=== PATIENT | female | born 1970 | race Caucasian/White ===

== ENCOUNTER 2022-07-10 08:40 | Outpatient (CLI) | payer BC ==
[2022-07-10 09:26] LABS: #Basophils 0.1 thou/uL (0.0-0.2); #Eosinphils 0.3 thou/uL (0.0-0.7); #Lymphocytes 3.3 thou/uL (1.20-3.40); #Monocytes 0.6 thou/uL (0.11-0.59); #Neutrophils 7.4 thou/uL (1.40-6.50); %Eosinophils 2.8 % (0.0-10.0); %Lymphocytes 28.2 % (21.0-51.0); Hemoglobin 13.9 g/dL (12.0-16.0); Mean Corpuscular HGB CONC 33.4 g/dL (32.0-36.0); Mean Corpuscular Hemoglobin 29.3 pg (27.0-31.0); Mean Corpuscular Volume 87.8 fl (78.0-98.0); Mean Platelet Volume 6.2 fL (7.4-10.4); Platelet Count 437 10x3/uL (130-400); Red Blood Cell (RBC) Count 4.72 mill/uL (4.20-5.40); White Blood Cell (WBC) Count 11.8 10x3/uL (4.8-10.8)
[2022-07-10 09:44] LABS: ALT (SGPT) 14 U/L (8-55); AST (SGOT) 12 U/L (5-34); Albumin 4.1 g/dL (3.5-5.0); Alkaline Phosphatase 79 U/L (40-110); Anion Gap 13 mmol/L (10-20); BUN (Urea Nitrogen) 11 mg/dL (9.8-20.1); Bilirubin, Total 0.3 mg/dL (0.2-1.2); Calc. Creatinine Clearance 0 mL/min (70-130); Calcium 9.3 mg/dL (7.8-10.44); Carbon Dioxide 27 mmol/L (22-29); Cardiac Risk 2.3 (Less than 4.5); Chloride 104 mmol/L (98-107); Cholesterol 146 mg/dl (< 200 Desired); Estimated GFR 86; Globulin 3.8 g/dL (2.4-3.5); Glucose 79 mg/dL (70-105); HDL Cholesterol 64 mg/dL (>60 Neg Risk); LDL Cholesterol, Calculated 71 mg/dL; Magnesium 2.1 mg/dL (1.6-2.6); Potassium 3.5 mmol/L (3.5-5.1); Protein, Total 7.9 g/dL (6.0-8.3); Sodium 140 mmol/L (136-145); Triglycerides 55 mg/dL (Less than 150)
[2022-07-10 16:19] LABS: Hemoglobin A1c 5.5 % (4.0-6.0)
[2022-07-10 16:22] LABS: Albumin (w/Testosterone Panel) 3.9 g/dL
[2022-07-10 16:23] LABS: Iron 62 ug/dL (50-170); Iron Binding Capacity, Total 281 mcg/dL (265-497)
[2022-07-10 16:32] LABS: Ferritin 27.84 ng/mL (10-291)
[2022-07-10 16:33] LABS: Free T4 (Free Thyroxine) 0.94 ng/dL (0.70-1.48)
[2022-07-10 16:34] LABS: Insulin 11.9 uU/mL (3.0-25.0); Vitamin D, 25 Hydroxy 9.9 ng/ml (> 30.0)
[2022-07-10 16:48] LABS: Testosterone, Total 22.4 ng/dL (12-36)
[2022-07-10 16:52] LABS: Sex Hormone Binding Globulin 34.9 nmol/L (26-188)
[2022-07-10 18:50] LABS: Follicle Stimulating Hormone 73.55 mIU/mL (See Ranges); Luteinizing Hormone 28.18 mIU/mL (See Ranges); Progesterone 0.3 ng/mL
[2022-07-13 15:49] LABS: Thyroid Peroxidase IgG Ab 4.7 IU/mL (<25 Normal)
== END 2022-07-10 08:41 | disposition home or self-care (01) ==
LOC: MADLAB 08:40
PROVIDERS: ATTEND Nurse Practitioner Family
DX: M79.10 Myalgia, unspecified site (principal); N95.9 Unspecified menopausal and perimenopausal disorder; R68.82 Decreased libido; R53.83 Other fatigue; R63.5 Abnormal weight gain; Z86.39 Personal history of other endocrine, nutritional and metabolic disease
CPT/HCPCS: 36415; 80053; 80061; 82306; 82607; 82627; 82670; 82728; 82746; 83001; 83002; 83036; 83525; 83540; 83550; 83735; 84144; 84270; 84403; 84439; 84443; 84481; 84482; 85025; 86376; 86800; 93005; 93010